=== PATIENT | male | born 1970 | race African-American/Black ===

== ENCOUNTER 2022-07-21 09:03 | Emergency (ER) | payer SELFPAY ==
[2022-07-21 09:04] VITALS: BP 120/105; PULSE 70; RESP 16; TEMP 36.6; O2SAT 100; BMI 27.8
--- NOTE | 2022-07-21 09:36 | EDS_ITS ---
HPI History of Present Illness Chief Complaint: Dental Narrative Narrative: 51-year-old male presenting with right upper dental pain. This has been ongoing for a few days. Patient has some facial swelling currently. No trouble swallowing or breathing. No fever or chills. Patient is established with Janelle Benton and has a scheduled dental appointment in September however due to his current facial swelling he expressed concern. Patient is not on any antibiotics. PFSH PFSH Medical History no medical history Home Medications amoxicillin 875 mg-potassium clavulanate 125 mg tablet 1 tab PO BID #20 tabs 07/21/22 [Rx Last Taken Unknown] naproxen 500 mg tablet (Naprosyn) 500 mg PO BID PRN pain #20 tabs 07/21/22 [Rx Last Taken Unknown] Allergy/AdvReac Type Severity Reaction Status Date / Time No Known Allergies Allergy Verified 07/21/22 09:06 Family History no significant family his Surgical History no surgical history Social History Smoking Status: Current every day smoker tobacco type: cigarettes ROS ROS ED Constitutional Constitutional ED: Denies chills, fever(s) or sweats Eyes Eyes: Denies blurry vision or change in vision ENT ENT ED: Reports other Details: Dental pain ; Denies ear pain or sore throat Cardiovascular Cardiovascular: Denies chest pain, palpitations or racing heartbeat Respiratory/Chest Respiratory/Chest: Denies cough, dyspnea or sputum Gastrointestinal Gastrointestinal: Denies abdominal pain, constipation, diarrhea, nausea or vomiting Genitourinary Genitourinary ED: Denies dysuria, hematuria or urinary frequency Musculoskeletal Musculoskeletal: Denies arthralgias, myalgias or neck pain Integumentary Denies abscess, Abrasions or rash Neurologic Neurologic: Denies headache(s), paresthesias or weakness Psychiatric Psychiatric: Denies anxiety, depression, suicidal ideation or suicidal thoughts Endocrine Endocrinology: Denies polydipsia or polyuria EXAM Physical Exam Const Vital Signs: 07/21/22 09:04 Temperature 97.8 F Temperature Source Temporal Pulse Rate 70 Respiratory Rate 16 Blood Pressure 120/105 H Blood Pressure Mean 110 Pulse Ox 100 Oxygen Delivery Method Room Air Positive well nourished General Appearance ED: NAD HEENT HEENT Narrative: There is erosion noted to the frontal surface of tooth #6 and tooth #7. This does go through the enamel and dentin. There is associated facial swelling around this area which is mild. No sublingual edema. No submandibular edema. Mouth ED: Yes lips normal, Yes tongue normal and Yes salivary gland normal Mouth: lips normal, tongue normal and salivary gland normal Eyes PERRL Neck no lymphadenopathy Lymph Lymphatic: no lymphadenopathy noted Resp normal respiratory effort Cardio regular rate and regular rhythm Neuro oriented x3 and CN's II-XII intact bilaterally Psych mental status grossly normal MDM MDM MDM Narrative Medical decision making narrative: Patient has poor dentition. Tooth #6 and tooth #7 are eroded on the anterior surface. This goes going down through the dentin. Associated mild facial swelling of the right upper lip. No trouble swallowing or breathing. No submandibular fullness or edema. No sublingual edema. Tongue is not swollen. Oropharynx patent without stridor. Patient has an appointment in September to see [facility] dentistry, but the facial swelling and pain has worsened. I will start him on Augmentin and given Naprosyn for pain. I gave him a referral sheet for other dental professionals locally. Return precautions were discussed. Impression: 1. Dental caries 2. Dental pain Lab Data Attestation: I reviewed the patient's lab results. Discharge Plan Triage Chief Complaint: Dental ED Provider: Vitor Thompson Dx/Rx/DC Orders Instructions: ED Dental Pain, ED Dental Cavity Prescriptions: New amoxicillin-pot clavulanate 875-125 mg tablet 1 tab PO BID Qty: 20 0RF naproxen [Naprosyn] 500 mg tablet 500 mg PO BID PRN (Reason: pain) Qty: 20 0RF Primary Care Provider: Care Physician,No Primary Referrals: [facility] [Outside] - As soon as possible Care Physician,No Primary [Primary Care Provider] - Disposition Disposition: Home, Self Care Discharge Date/Time: 07/21/22 09:47
[2022-07-21] MEDS: Naproxen 500 MG Tablet PO (09:42)
[2022-07-21] MEDS: Amox/Clavulanate 875 MG Tablet PO (09:42)
== END 2022-07-21 09:47 | disposition home or self-care (01) ==
PROVIDERS: Emergency Provider Student in an Organized Health Care Education/Training Program; Visit Provider Student in an Organized Health Care Education/Training Program
DX: K08.89 Other specified disorders of teeth and supporting structures (principal); K02.9 Dental caries, unspecified; F17.210 Nicotine dependence, cigarettes, uncomplicated
CPT/HCPCS: 99283